=== PATIENT | male | born 1980 | race Caucasian/White ===

== ENCOUNTER 2018-10-29 15:31 | Outpatient (CLI) | payer OTHER ==
--- NOTE | 2018-10-29 17:03 | ULT ---
THYROID ULTRASOUND: 10/29/18 HISTORY: Kamilla's thyroiditis. COMPARISON: None. TECHNIQUE: Sagittal and transverse images of the thyroid gland is performed. FINDINGS: There is mild heterogeneity throughout the thyroid gland. There are no masses. Thyroid isthmus measures 1.0 cm. Right thyroid lobe measures 5.8 x 2.7 x 2.5 cm. Left thyroid lobe measures 5.8 x 2.4 x 2.5 cm. IMPRESSION: Heterogeneity throughout the thyroid gland with mild enlargement of the thyroid gland. No solid or cy stic masses. POS: [facility]
== END 2018-10-29 15:32 | disposition home or self-care (01) ==
LOC: BICULT 15:31
PROVIDERS: ATTEND Family Medicine
DX: E06.3 Autoimmune thyroiditis (principal)
CPT/HCPCS: 76536